=== PATIENT | female | born 1965 | race Caucasian/White ===

== ENCOUNTER 2017-07-07 17:54 | Emergency (ER) | payer MEDICAID ==
[2017-07-07] MEDS ORDERED: NS 0.9% 1000 ML* 1,000 ML IV ONE (19:26)
[2017-07-07] MEDS ORDERED: LORazepam INJ* 2 MG/ML 1 ML VIAL IV PUSH ONE (19:28)
[2017-07-07] MEDS ORDERED: Metoclopramide IV* 5 MG/ML 2 ML VIAL IV SLOW PU ONE (19:28)
[2017-07-07 19:45] LABS: ABS Basophils 0.1 10^3/ul (0-0.2); ABS Eosinophils 0 10^3/ul (0-0.6); ABS Lymphocytes 2.5 10^3/ul (1.0-4.8); ABS Monocytes 0.4 10^3/ul (0-0.8); ABS Neutrophils 4.7 10^3/ul (1.5-7.7); ABS Nucleated RBC 0 10^3/ul; Eosinophil % 0.6 % (0-6); Hematocrit 40 % (35-47); Hemoglobin 13.5 g/dl (12.0-16.0); Lymphocyte % 32.3 % (25-47); Mean Corpuscular HGB Conc 34 g/dl (31-36); Mean Corpuscular Hemoglobin 31 pg (27-31); Mean Corpuscular Volume 92 fL (80-97); Mean Platelet Volume 7 um3 (7.4-10.4); Nucleated Red Blood Cells % 0.2; Platelet Count 384 10^3/ul (150-450); Red Blood Count 4.35 10^6/ul (4.0-5.4); Red Cell Distribution Width 13 % (10.5-15); White Blood Count 7.8 10^3/ul (3.5-10.8)
--- NOTE | 2017-07-07 21:22 | ED ---
Dean Spaulding Julia, scribed for Lorne Swann MD on 07/07/17 at 1919 . Allergic Reaction/Systemic - HPI Summary HPI Summary: This patient is a 52 year old F presenting to [facility] with a chief complaint of a medication reaction since noon today. Patient reports nausea, headaches, anxiety , tremors, and elevated blood glucose secondary to Naltrexone. She is a current patient at [facility] for alcohol addiction. She states her last alcohol use was . Patient is diabetic. - History of Current Complaint Chief Complaint: EDAllergicReaction Time Seen by Provider: 07/07/17 19:12 Hx Obtained From: Patient Onset/Duration: Started hours ago Timing: Constant Pain Intensity: 0 Pain Scale Used: 0-10 Numeric Alleviating Factor(s): Other - recent medication Associated Signs And Symptoms: Positive: Other: - nausea, headaches, anxiety, tremors, and elevated blood glucose - Allergies/Home Medications Allergies/Adverse Reactions: Allergies Allergy/AdvReac Type Severity Reaction Status Date / Time No Known Allergies Allergy Verified 07/07/17 18:59 PMH/Surg Hx/FS Hx/Imm Hx Endocrine/Hematology History: Reports: Hx Diabetes Psychiatric History: Reports: Hx Substance Abuse - alcohol Infectious Disease History: No Infectious Disease History: Denies: Traveled Outside the [place] in Last 30 Days - Family History Known Family History: Positive: Diabetes, Other - high cholesterol, cancer - Social History Alcohol Use: None - recovering alcoholic Substance Use Type: Reports: None Smoking Status (MU): Never Smoked Tobacco Review of Systems Positive: Other - elevated blood glucose Positive: Nausea Neurological: Other - tremors Positive: Headache Positive: Anxious All Other Systems Reviewed And Are Negative: Yes Physical Exam - Summary Physical Exam Summary: VITAL SIGNS: Reviewed. GENERAL: Patient is a well-developed and nourished female who is lying comfortable in the stretcher. Patient is not in any acute respiratory distress. HEAD AND FACE: No signs of trauma. No ecchymosis, hematomas or skull depressions. No sinus tenderness. EYES: PERRLA, EOMI x 2, No injected conjunctiva, no nystagmus. EARS: Hearing grossly intact. Ear canals and tympanic membranes are within normal limits. MOUTH: Oropharynx within normal limits. NECK: Supple, trachea is midline, no adenopathy, no JVD, no carotid bruit, no c- spine tenderness, neck with full ROM. CHEST: Symmetric, no tenderness at palpation LUNGS: Clear to auscultation bilaterally. No wheezing or crackles. CVS: Regular rate and rhythm, S1 and S2 present, no murmurs or gallops appreciated. ABDOMEN: Soft, non-tender. No signs of distention. No rebound no guarding, and no masses palpated. Bowel sounds are normal. EXTREMITIES: FROM in all major joints, no edema, no cyanosis or clubbing. NEURO: Alert and oriented x 3. No acute neurological deficits. Speech is normal and follows commands. Tremors of the outstretched hands SKIN: Dry and warm Triage Information Reviewed: Yes Vital Signs On Initial Exam: Initial Vitals Temp Pulse Resp BP Pulse Ox 97.8 F 102 18 163/85 100 07/07/17 17:57 07/07/17 17:57 07/07/17 17:57 07/07/17 17:57 07/07/17 17:57 Vital Signs Reviewed: Yes Diagnostics - Vital Signs Vital Signs Temp Pulse Resp BP Pulse Ox 07/07/17 17:57 97.8 F 102 18 163/85 100 - Laboratory Result Diagrams: 07/07/17 19:34 07/07/17 19:34 Lab Statement: Any lab studies that have been ordered have been reviewed, and results considered in the medical decision making process. Allergic Reaction Course/Dx - Course Course Of Treatment: Patient presents c/o medication reaction since noon today. Patient reports nausea, headaches, anxiety, tremors, and elevated blood glucose secondary to Naltrexone. Lab results are of no acute concern. Patient is given Reglan, Ativan, and IV fluids. Patient is instructed to stop using the Naltrexone. - Diagnoses Provider Diagnoses: Drug reaction Discharge - Discharge Plan Condition: Stable Disposition: SUBSTANCE ABUSE REHAB Patient Education Materials: Adverse Drug Reaction (ED) Referrals: Costa Epps [Primary Care Provider] - If Needed Additional Instructions: Stop use of Naltrexone. RETURN TO THE EMERGENCY DEPARTMENT FOR CHANGING OR WORSENING SYMPTOMS. The documentation as recorded by the Dean larson Julia accurately reflects the service I personally performed and the decisions made by , Lorne Swann MD.
[2017-07-07 21:41] VITALS: BP 128/64
== END 2017-07-07 21:38 ==
LOC: ED 17:54
DX: R11.0 Nausea (principal); E09.65 Drug or chemical induced diabetes mellitus with hyperglycemia; R51 Headache; T50.7X5A Adverse effect of analeptics and opioid receptor antagonists, initial encounter; Y92.9 Unspecified place or not applicable; F10.20 Alcohol dependence, uncomplicated
CPT/HCPCS: 36415; 80053; 85025; 96374; 96375; 99282; J2060; J2765